=== PATIENT | male | born 1950 | race African-American/Black ===

== ENCOUNTER 2023-02-01 12:56 | Emergency (ER) | payer OTHER, MEDICAID ==
[~2023-02-01] VITALS: Ht 180.3 cm; Wt 77.0 kg
[2023-02-01 13:31] LABS: BASOPHILS % 0.5 % (0.0-2.0); EOSINOPHILS % 5.6 % (0.0-5.0); HEMATOCRIT. 22.2 % (42.0-52.0); HEMOGLOBIN. 7.4 g/dL (14.0-18.0); LYMPHOCYTES % 22.1 % (20.0-50.0); MEAN CORPUSCULAR HEMOGLOBIN 33.6 pg (28.0-32.0); MEAN CORPUSCULAR VOLUME 100.3 fL (80.0-94.0); MEAN PLATELET VOLUME 7.8 fl (7.4-10.4); MONOCYTES % 8.2 % (2.0-8.0); NEUTROPHILS % 63.6 % (40.0-76.0); PLATELET 239 x1000/uL (130-400); RED BLOOD CELL COUNT 2.21 mill/uL (4.7-6.1); RED CELL DISTRIBUTION WIDTH 14.5 % (11.6-14.6)
[2023-02-01 13:37] VITALS: O2SAT 100
[2023-02-01 13:39] LABS: CHLORIDE 104 mEq/L (98-107)
[2023-02-01 16:08] LABS: CLARITY URINE CLEAR (CLEAR); COLOR URINE YELLOW (YELLOW); KETONES URINE NEGATIVE (NEGATIVE); LEUKOCYTE ESTERASE URINE 2+ (NEGATIVE); NITRITE URINE NEGATIVE (NEGATIVE); OCCULT BLOOD URINE NEGATIVE (NEGATIVE); PH URINE 5.5 (4.5-8.0); PROTEIN URINE TRACE (NEGATIVE); SPECIFIC GRAVITY URINE 1.018 (1.005-1.030); UROBILINOGEN URINE 0.2 E.U./dL (0.2-1.0)
[2023-02-01 21:31] VITALS: BP 164/87; PULSE 90; RESP 18; TEMP 97.9
[2023-02-01] MEDS ORDERED: PANTOPRAZOLE SODIUM 40 MG/VIAL IV ONE (22:30)
== END 2023-02-01 22:49 | disposition left against medical advice (07) ==
LOC: ER 14:04 → EDBEDREQTM 22:32 → EDBEDREQ 22:32 → ER 22:49 → CANBEDREQ 02-03 20:36
DX: R68.89 Other general symptoms and signs (principal)
CPT/HCPCS: 36415; 80053; 81003; 82270; 85025; 86850; 86900; 99283